=== PATIENT | female | born 2005 | race Caucasian/White ===

== ENCOUNTER 2023-01-27 17:10 | Emergency (ER) | payer SELFPAY ==
[2023-01-27 17:14] VITALS: BP 142/90; PULSE 75; RESP 18; TEMP 36.6; O2SAT 100
--- NOTE | 2023-01-27 17:22 | ED_ITS ---
HPI - General Adult General Chief complaint: Ear/Nose/Throat Problem Stated complaint: Sore throat, Running nose, Ear pain Time Seen by Provider: 01/27/23 17:13 History of Present Illness HPI narrative: Pt here for bilateral ear pain, runny nose, and sore throat since . Did 4 rapid covid tests - all negative. Did take 2 days of amoxicillin that she had leftover from a previous ear infection. Has also tried cough drops and tylenol w/o relief 17-year-old young woman presenting to the emergency department with concern of ear pain and some sore throat. She has done multiple COVID tests which have turned out negative. Symptoms for about 5 or 6 days. She has also had rhinorrhea. Has taken a couple of days of left over amoxicillin. No fever. Facial pain. Sounds like worried at this point that might have an ear infection as well. Not persistently short of breath. Related Data Home Medications Medication Instructions Recorded Confirmed No Known Home Medications 01/27/23 01/27/23 Previous Rx's Medication Instructions Recorded prednisone 20 mg tablet See Rx Instructions .Route 01/27/23 .COMPLEX #11 tabs Allergies Allergy/AdvReac Type Severity Reaction Status Date / Time No Known Drug Allergies Allergy Verified 01/27/23 17:18 Review of Systems Status of ROS: Reports: 6 or more systems reviewed and unremarkable except as noted in History and below [facility] Social History Smoking Status: Never smoker Do you use any of these nicotine containing products: None Second hand tobacco smoke exposure: No How often do you have a drink containing alcohol: never AUDIT-C Alcohol total score: 0 Non-prescribed substance use: denies use service: No Exam Narrative: Exam Narrative: Pleasant. NAD. Sounds congested. No facial swelling or erythema. Bilateral TMs are full pink and semi transparent with good light reflex. Lungs are clear. Heart with regular rate and rhythm. Oropharynx is moist faintly erythematous. No cervical lymphadenopathy. Const: Vital Signs, click to edit/add: Vital Signs - 24 hr 01/27/23 17:14 Temperature 97.9 F Pulse Rate [Right Pulse Oximeter] 75 Respiratory Rate 18 Blood Pressure [Ri ght Upper Arm] 142/90 H Pulse Oximetry 100 Oxygen Delivery Me thod Room Air Course Vital Signs Vital signs: Initial Vital Signs Temperature 97.9 F 01/27/23 17:14 Temperature Source Temporal Artery Scan 01/27/23 17:14 Pulse Rate 75 01/27/23 17:14 Pulse Rhythm Regular 01/27/23 17:14 Pulse Strength 3+ Normal 01/27/23 17:14 Respiratory Rate 18 01/27/23 17:14 Blood Pressure 142/90 H 01/27/23 17:14 Blood Pressure Mean 107 H 01/27/23 17:14 Blood Pressure Position Sitting 01/27/23 17:14 Pulse Oximetry 100 01/27/23 17:14 Oxygen Delivery Method Room Air 01/27/23 17:14 Vital Signs Temperature 97.9 F 01/27/23 17:14 Pulse Rate 75 01/27/23 17:14 Respiratory Rate 18 01/27/23 17:14 Blood Pressure 142/90 H 01/27/23 17:14 Pulse Oximetry 100 01/27/23 17:14 Oxygen Delivery Method Room Air 01/27/23 17:14 Temperature 97.9 F 01/27/23 17:14 Pulse Rate 75 01/27/23 17:14 Respiratory Rate 18 01/27/23 17:14 Blood Pressure 142/90 H 01/27/23 17:14 Pulse Oximetry 100 01/27/23 17:14 Oxygen Delivery Method Room Air 01/27/23 17:14 Medical Decision Making MDM Narrative Medical decision making narrative: Seems to have a head cold. I do not appreciate findings consistent with bacterial otitis media. I think strep testing would likely be negative given other symptoms; no lymphadenopathy of the cervical pain. Eustachian tube seem congested/plugged. See patient discharge plan Discharge Plan Discharge Clinical Impression: Dysfunction of both eustachian tubes, Head cold, Pharyngitis Patient Disposition: Home, Self-Care Condition: Stable Additional Instructions: Be sure to stay well hydrated. Consider sleeping under the mist of cool mist humidifier. Menthol vapors might be helpful. I would get some 12 hour pseudoephedrine for drying and decongestion. Take that about every 10 hours. Prednisone should help decrease inflammation and therefore discomfort. Otherwise can take up to 800 mg of ibuprofen or up to 1000 mg of acetaminophen per dose. Might also try anesthetic throat lozenges or sprays like Sucrets or Chlora septic. Prescriptions: New prednisone 20 mg tablet See Rx Instructions .ROUTE .COMPLEX Qty: 11 0RF Rx Instructions: take 60mg on day 1; then 40mg daily days 2 - 5. No Action No Known Home Medications Stand Alone Forms: [employer] Info Instructions
== END 2023-01-27 18:15 | disposition home or self-care (01) ==
LOC: ED 18:16
PROVIDERS: Emergency Provider Family Medicine
DX: H69.83 Other specified disorders of Eustachian tube, bilateral (principal); J02.9 Acute pharyngitis, unspecified
CPT/HCPCS: 99283

== ENCOUNTER 2024-02-07 20:06 | Emergency (ER) | payer OTHER, SELFPAY ==
[2024-02-07 20:11] VITALS: BP 156/116; PULSE 84; RESP 16; TEMP 36.6; O2SAT 100; BMI 35.8
--- NOTE | 2024-02-07 21:44 | ED.GENADULT ---
HPI - General Adult General Chief complaint: Ear/Nose/Throat Problem Stated complaint: Tongue swelling Time Seen by Provider: 02/07/24 21:05 History of Present Illness HPI narrative: Pt reports history of thrush, few months ago?November? Pt reports that the left side of her tongue is sore and causing pain. Pt unknown the cause, feels like something . Pt reports no difficulty in breathing. Pt also reports pain to left side of throat. 18-year-old young woman presenting to the emergency department with concern of left-sided tongue and throat pain. She thinks that the tongue is the source of the pain. No trouble managing secretions or breathing. No fever. Apparently some months ago had thrush. Does not recall traumatizing her tongue Related Data Previous Rx's ?Medication ?Instructions ?Recorded prednisone 20 mg tablet See Rx Instructions .Route 01/27/23 .COMPLEX #11 tabs Magic Mouthwash 5 - 10 ml PO QID PRN #120 mL 02/07/24 (Lidocaine/Benadryl/Maalox) 120 mL suspension Allergies Allergy/AdvReac Type Severity Reaction Status Date / Time No Known Drug Allergies Allergy Verified 01/27/23 17:18 Review of Systems Status of ROS: Reports: 6 or more systems reviewed and unremarkable except as noted in History and below PFSH [facility] Social History Smoking Status: Never smoker Do you use any of these nicotine containing products: None Second hand tobacco smoke exposure: No How often do you have a drink containing alcohol: never AUDIT-C Alcohol total score: 0 Non-prescribed substance use: denies use service: No Exam Narrative: Exam Narrative: Pleasant. NAD. Skin is warm and dry. Neck structures looks symmetrical. No difficulty breathing. Appears to be a little sore with swallowing. Oropharynx is without significant erythema though ring and over the posterior oropharynx lightly. I do not appreciate swelling. The left side of the tongue there is small less than 1/8 inch ulceration with some mild inflammatory changes surrounding. A smaller point little more anterior. The left side neck there is sub cm lymphadenopathy that is somewhat tender. I do not appreciate any oral thrush at this time. Is repeatedly palpating the left side of her neck Const: Vital Signs, click to edit/add: Vital Signs - 24 hr 02/07/24 20:11 Temperature 97.8 F Pulse Rate [Left P ulse Oximeter] 84 Respiratory Rate 16 Blood Pressure [Ri ght Upper Arm] 156/116 H Pulse Oximetry 100 Oxygen Delivery Me thod Room Air Documenting provider has reviewed patient's vital signs: yes Course Vital Signs Vital signs: Initial Vital Signs Temperature 97.8 F 02/07/24 20:11 Temperature Source Temporal Artery Scan 02/07/24 20:11 Pulse Rate 84 02/07/24 20:11 Pulse Rhythm Regular 02/07/24 20:11 Respiratory Rate 16 02/07/24 20:11 Blood Pressure 156/116 H 02/07/24 20:11 Blood Pressure Mean 129 H 02/07/24 20:11 Blood Pressure Position Sitting 02/07/24 20:11 Pulse Oximetry 100 02/07/24 20:11 Oxygen Delivery Method Room Air 02/07/24 20:11 Vital Signs Temperature 97.8 F 02/07/24 20:11 Pulse Rate 84 02/07/24 20:11 Respiratory Rate 16 02/07/24 20:11 Blood Pressure 156/116 H 02/07/24 20:11 Pulse Oximetry 100 02/07/24 20:11 Oxygen Delivery Method Room Air 02/07/24 20:11 Temperature 97.8 F 02/07/24 20:11 Pulse Rate 84 02/07/24 20:11 Respiratory Rate 16 02/07/24 20:11 Blood Pressure 156/116 H 02/07/24 20:11 Pulse Oximetry 100 02/07/24 20:11 Oxygen Delivery Method Room Air 02/07/24 20:11 Medical Decision Making MDM Narrative Medical decision making narrative: I think this sore on her tongue without evidence of blisters elsewhere is likely explanation for neck discomfort and tongue discomfort. Inflammatory material draining through this lymph node. Do not see any other cause for concern here. Might have secondary viral pharyngitis as well. May be exacerbating discomfort by pressing on this lymphadenopathy. Oral thrush which is not present might otherwise warrant further investigation. Would consider screening though for strep. Strep testing was negative. See patient discharge plan for further discussion Lab Data Labs: Lab Results 02/07/24 Range/Units 22:00 Group A Strep DNA NOT DETECTED (Not Detectd) Discharge Plan Discharge Clinical Impression: Canker sore, Throat pain Patient Disposition: Home, Self-Care Condition: Stable Additional Instructions: As I said I wonder if you have a lymph node that is irritated or little swollen draining what looks to be some inflammation/canker sores on your tongue. Calling in some Magic mouthwash for you. I would use this regularly over the next 3 - 4 days if you can. Can maybe then go to as needed. You could also try some [id number] anesthetic lozenges or sprays like Sucrets or Chloraseptic. Try to avoid pressing on this area of your neck. Be seen for any indication of difficulty breathing, inability to manage secretions for example by swallowing, marked increase in pain or swelling. Would also be seen if this is still bothering you in the throat next week. Prescriptions: New Magic Mouthwash (Lidocaine/Benadryl/Maalox) 120 mL suspension 5 - 10 ml PO QID PRNQty: 120 0RF Rx Instructions: Lidocaine Viscous 2 % mucosal solution 40 mL; Maalox 200 mg-200 mg-20 mg/5 mL oral suspension 40 mL; Benadryl 12.5 mg/5 mL oral elixir 40 mL; Per 120 mL SWISH AND SPIT. MAY COMPOUND IF FIRST PRODUCT IS NOT AVAILABLE. No Action prednisone 20 mg tablet See Rx Instructions .ROUTE .COMPLEX Qty: 11 0RF Rx Instructions: take 60mg on day 1; then 40mg daily days 2 - 5. Follow Up/Referrals: Provider,Not a Local [Primary Care Provider] - Stand Alone Forms: [facility] Info Instructions
[2024-02-07 22:32] LABS: Strep A DNA Probe* NOT DETECTED (Not Detectd)
== END 2024-02-07 23:23 | disposition home or self-care (01) ==
PROVIDERS: Emergency Provider Family Medicine
DX: K12.0 Recurrent oral aphthae (principal); R07.0 Pain in throat
CPT/HCPCS: 87651; 99283; 99284